=== PATIENT | female | born 1965 | race Caucasian/White ===

== ENCOUNTER 2023-10-16 09:17 | Emergency (ER) | payer MEDICAID ==
[2023-10-16 10:48] LABS: INFLUENZA A NAA POSITIVE (NEGATIVE); INFLUENZA B NAA NEGATIVE (NEGATIVE); RESPIRATORY SYNCYTIAL VIR NAA NEGATIVE (NEGATIVE)
[2023-10-16 10:58] LABS: CORONAVIRUS COVID-19 NAA NEGATIVE (NEGATIVE)
[2023-10-16] MEDS ORDERED: Sodium Chloride 0.9% 1,000 ML IV SCH (11:45)
[2023-10-16] MEDS ORDERED: Acetaminophen 325 MG Tab ONE (11:50)
[2023-10-16] MEDS ORDERED: Acetaminophen 325 MG Tab PO ONE (11:51)
== END 2023-10-16 14:10 | disposition home or self-care (01) ==
LOC: LB.ED 09:17
DX: J10.1 Influenza due to other identified influenza virus with other respiratory manifestations (principal); I10 Essential (primary) hypertension; Z79.899 Other long term (current) drug therapy
CPT/HCPCS: 0241U; 71045; 87430; 96360; 99283; 99283-25; A9270-GY; J7030